=== PATIENT | male | born 1985 | race Caucasian/White ===

== ENCOUNTER 2023-02-06 10:14 | Emergency (ER) | payer OTHER, SELFPAY ==
[2023-02-06 10:15] VITALS: BP 130/102; PULSE 80; RESP 20; TEMP 36.2; O2SAT 97; BMI 32.4
--- NOTE | 2023-02-06 10:52 | RAD_ITS ---
STUDY: X-RAY - LUMBAR SPINE REASON FOR EXAM: Male, 37 years old. Back pain following injury. TECHNIQUE: 2 view(s) of the lumbar spine were obtained. COMPARISON: None FINDINGS: Normal lumbar lordosis. There is no substantial scoliosis. There is a normal alignment of the vertebrae. Disc space narrowing and spondylosis at the L5-S1 level. Well-defined bony densities overlying the lateral aspect of the right and left acetabulum. This may represent old injury. There is atherosclerotic calcification of the abdominal aorta without a demonstrated aneurysm. RAD/Lumbar Spine 2 or 3 Views IMPRESSION: Disc space narrowing and spondylosis at the L5-S1 level. Electronically Signed: Cristi Malone MD at 11:17 EST ,
[2023-02-06] MEDS: Morphine 4 MG/ML Syringe 8 MG IM (11:01)
--- NOTE | 2023-02-06 11:06 | RAD_ITS ---
STUDY: X-RAY - PELVIS AND LEFT HIP REASON FOR EXAM: Male, 37 years old. Pain TECHNIQUE: 3 views of the pelvis and hip. COMPARISON: None. FINDINGS: There is a non-specific bowel gas pattern. There are multiple calcified phleboliths. Avulsion fracture of the inferior aspect of the left iliac bone. Normal bilateral superior and inferior pubic rami. Normal pubic symphysis. Normal bilateral ischial tuberosities. Normal visualized femoral head. Normal acetabulum. Normal hip joint. RAD/HIP, UNI W/ Pelvis 2-3 Views IMPRESSION: Avulsion fracture of the left iliac bone. Electronically Signed: Cristi Malone MD at 12:26 EST ,
--- NOTE | 2023-02-06 11:19 | EDS_ITS ---
HPI History of Present Illness Chief Complaint: Back Informant: patient Narrative Narrative: Patient is a 37-year-old male with history of arthritis and degenerative joint disease as well and has remote history of what sounds like a septic joint from strep in his hips when he was 8 years old. He is presenting for about 3 months of worsening left lower back pain. He denies any radiation of the pain. Denies any associated numbness or weakness. Denies any fever, chills or unintentional weight loss. Denies any trauma. Notes that he does also get pain in his left groin, left lower abdomen and left hip. He saw his PCP at [facility] and he had a cervical x-ray as well as a CT of his abdomen pelvis. He was told that because of the CT he needs to follow-up with spine surgery and do physical therapy. He has not heard back from them. He states that he does not take NSAIDs or Tylenol because none of it helps. 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 The pain was so bad today he had a hard time getting into the truck/lifting up his left leg due to pain. This is what triggered him to come to the emergency room. He also voices frustration since he has not been able to get a hold of anyone to follow-up. [facility] Medical History (Updated 02/06/23 @ 13:[address] Eugenie Powers, ) Arthritis Degenerative disc disease Medical History no medical history Home Medications hydrocodone-acetaminophen 5-325mg 5mg-325mg 1 - 2 tab PO Q4H PRN PRN Pain ##20 09/20/16 [Rx Last Taken Unknown] naproxen 500 mg tablet 500 mg PO BID PRN #20 tabs 09/20/16 [Rx Last Taken Unknown] naproxen 500 mg tablet 500 mg PO BID #20 tabs 02/06/23 [Rx Last Taken Unknown] oxycodone-acetaminophen 5 mg-325 mg tablet (Percocet) 1 tab PO Q6H PRN pain 3 days #12 tabs 02/06/23 [Rx Last Taken Unknown] Allergy/AdvReac Type Severity Reaction Status Date / Time No Known Allergies Allergy Verified 02/06/23 10:15 Surgical History (Updated 02/06/23 @ 11:52 by Ismael Feliz) History of hip surgery Social History Smoking Status: Never smoker ROS ROS ED Constitutional Constitutional ED: Denies chills or fever(s) Respiratory/Chest Respiratory/Chest: Denies dyspnea Gastrointestinal Gastrointestinal: Reports abdominal pain; Denies nausea or vomiting Genitourinary Genitourinary ED: Denies dysuria or urinary frequency Musculoskeletal Musculoskeletal: Reports back pain and other Details: left hip pain Integumentary Denies rash Neurologic Neurologic: Denies paresthesias or weakness Psychiatric Psychiatric: Denies anxiety Hematologic/Lymphatic Hematologic/Lymphatic: Denies easy bleeding or easy bruising EXAM Physical Exam Const Vital Signs: 02/06/23 10:15 Temperature 97.2 F L Temperature Source Temporal Pulse Rate 80 Respiratory Rate 20 H Blood Pressure 130/102 H Blood Pressure Mean 111 Pulse Ox 97 Oxygen Delivery Method Room Air Positive well nourished and well developed General Appearance ED: well developed and NAD HEENT Reports moist mucous membranes Eyes PERRL Resp normal respiratory effort and clear to auscultation bilaterally Cardio regular rate and regular rhythm GI normal to inspection, nondistended, normoactive bowel sounds, soft to palpation and non-tender Back/Spine Back/Spine Narrative: Tenderness palpation of the left lower paraspinal region as well as approximately L3-L4. Patient has reproduction of pain with straight leg test on the contralateral side however does not radiate. Does not tolerate 15 degrees of straight leg test on the left side because of pain in his lower back. Again does not radiate. Thoracic Spine / Upper Back: Negative for paraspinal muscle tenderness Extremity normal to inspection Extremity Narrative: Pinpoint tenderness to palpation. Patient is have pain with range of motion of the hip. General Extremety ED: Negative for edema or tenderness General Extremity: Negative for edema Neuro oriented x3 and no sensory deficits noted Motor Exam: strength 5/5 throughout Psych mental status grossly normal Skin no rashes or lesions noted and no wounds MDM MDM MDM Narrative Medical decision making narrative: Patient is evaluated for traumatic ongoing left lower back and left hip pain. He also sometimes has some pain in his left lower quadrant. He had a recent outpatient CT. I am able to review the results on Clinisync which she will fatty liver with sparing adjacent to the gallbladder fossa no acute abnormality. There is L5-S1 disc height is mildly narrowed with mild adjacent endplate hypertrophy. He does have some midline tenderness of the lumbar spine as well as paraspinal tenderness. Is given IM morphine with some improvement of his pain. He now looks more comfortable at rest. States it still has pain when he moves. X-ray shows displaced narrowing and spondylosis at L5/1 level but no other acute process. Addition I did obtain a hip x-ray due to his complaint of hip pain. He is found to have an avulsion fracture of the left iliac bone. Discussed with radiology who feels that it is likely acute. This possibly could be exacerbating his pain however it is little atypical given how long this pain has been going on and he does not have any trauma or mechanism injury for this. Case was discussed with Dr. Meza, orthopedics, who states that this would be a nonoperative injury and can follow-up in the office. Likely need physical therapy. Recommends crutches and pain control. Patient states he does have crutches at home and does not need a prescription. There is also a walker at home if he really needed it. Will be given a work note for today and tomorrow and is given a short course of oxycodone for pain control. Is given return precautions. Will be given spine referral per his request as well. Counseled that the exact cause of his symptoms and mechanism of his pain is not entirely clear however at this time he does not require emergent admission/further work-up. He is agreeable with this. He does not have any physical exam findings that are consistent with a radiculopathy at this time. He is neurovascularly intact. Radiography Diagnostic Testing: Clinical Impression(s) from Imaging Studies Lumbar Spine X-Ray 02/06/23 10:52 IMPRESSION: Disc space narrowing and spondylosis at the L5-S1 level. Electronically Signed: Cristi Malone MD at 11:17 EST , Hip/Pelvis X-Ray 02/06/23 11:06 IMPRESSION: Avulsion fracture of the left iliac bone. Electronically Signed: Cristi Malone MD at 12:26 EST , Left hip x-ray?no acute dislocation. Avulsion fracture of the left iliac bone noted. Management Discussion w/another healthcare provider: Drywall Finisher Foreman and Radiologist Discharge Plan Triage Chief Complaint: Back ED Provider: Eugenie Powers Dx/Rx/DC Orders Clinical Impression: Closed avulsion fracture of left anterior inferior iliac spine, Chronic left-sided low back pain Instructions: Common Types of Fractures, ED Pain Management: Chronic Prescriptions: New naproxen 500 mg tablet 500 mg PO BID Qty: 20 0RF oxycodone-acetaminophen [Percocet] 5-325 mg tablet 1 tab PO Q6H PRN (Reason: pain) 3 Days Qty: 12 0RF No Action hydrocodone-acetaminophen 1 TABLET tablet 1 - 2 tab PO Q4H PRN PRN (Reason: Pain) Qty: 20 0RF naproxen 500 MG tablet 500 mg PO BID PRN Qty: 20 0RF Stand Alone Forms: ED Work / School Excuse Primary Care Provider: Care Physician,No Primary Referrals: Jonel Peña, [Med Staff - Active Staff] - As Needed (for Spine follow up ) Suhas Meza MD [Med Staff - Active Staff] - As soon as possible NOT,DEFINED [Non-Staff] - Activity Restrictions/Additional Instructions: Use crutches for comfort. Please follow-up with orthopedics and you have also been given referral for youth career specialist. (Dr. Peña). Take anti- inflammatories regularly (you been given a prescription for naproxen) and you have also been given a prescription for stronger pain medication?Percocet to take for breakthrough pain. Disposition Disposition: Home, Self Care
== END 2023-02-06 13:48 | disposition home or self-care (01) ==
PROVIDERS: Emergency Provider Emergency Medicine; Visit Provider Emergency Medicine
DX: S32.312A Displaced avulsion fracture of left ilium, initial encounter for closed fracture (principal); X58.XXXA Exposure to other specified factors, initial encounter; M47.816 Spondylosis without myelopathy or radiculopathy, lumbar region; M48.061 Spinal stenosis, lumbar region without neurogenic claudication; M25.552 Pain in left hip; R10.32 Left lower quadrant pain
CPT/HCPCS: 72100; 73502; 96372; 99282

== ENCOUNTER → 2023-02-12 | Outpatient (CLI) | payer OTHER, SELFPAY ==
[2023-02-12 15:43] LABS: Absolute Lymphocyte Count 1.02 X10^3/uL (0.83-4.51); Absolute Neutrophil Count 5.5 X10^3/uL (2.0-7.7); Basophil# 0.04 X10^3/uL; Basophil% 0.5 % (0-1); Eosinophil# 0.07 X10^3/uL; Hematocrit 46.3 % (40-54); Hemoglobin 15.3 g/dL (13.0-16.5); Lymphocyte # 1.02 X10^3/ul (0.83-4.51); Mean Corpuscular Hgb 30.1 pg (27.0-32.0); Mean Corpuscular Volume 91.1 fL (80-94); Mean Platelet Vol. 11.9 fl (6.2-12.0); Monocyte# 0.64 X10^3/uL; Monocyte% 8.8 % (0-10); NRBC Flagged by Analyzer 0 % (0-5); Neutrophil # 5.49 X10^3/uL (2.7-7.7); Neutrophil % 75.4 % (47-70); Platelet Count 235 K/mm3 (150-450); RBC Distribution Width CV 12.9 % (11.6-14.6); RBC Distribution Width SD 42.9 fl (35.1-43.9); Red Blood Count 5.08 M/mm3 (4.6-6.2); White Blood Count 7.3 K/mm3 (4.4-11.0)
[2023-02-12 15:55] LABS: Anion Gap 5 (5-15); BUN 12 mg/dL (7-18); BUN/Creat Ratio 11.9 RATIO (10-20); CRP 3.25 mg/L (0.0-3.0); Calcium,Total 8.7 mg/dL (8.5-10.1); Chloride 107 mmol/L (98-107); Creatinine, Serum 1.01 mg/dL (0.70-1.30); EST Glomerular Filtration Rate 89 mL/min (>60); Est Glom Filt Rate - Afr Amer 108 mL/min (>60); Glucose 95 mg/dL (74-106); Potassium 4.1 mmol/L (3.5-5.1); Sodium Level 140 mmol/L (136-145)
[2023-02-12 16:02] LABS: Erythrocyte Sedimentation Rate 2 mm/hr (0-20)
== END | disposition home or self-care (01) ==
LOC: LAB 14:45
PROVIDERS: PCP Family Medicine; Referring Provider Physician Assistant; Visit Provider Physician Assistant
DX: M25.552 Pain in left hip (principal)
CPT/HCPCS: 36415; 80048; 85025; 85652; 86140

== ENCOUNTER → 2023-03-22 | Outpatient (CLI) | payer OTHER, SELFPAY ==
--- NOTE | 2023-03-22 12:01 | RAD_ITS ---
STUDY: X-RAY CHEST REASON FOR EXAM: Male, 37 years old. PRE OP TECHNIQUE: PA and lateral views of the chest. COMPARISON: None. FINDINGS: The lungs are clear and expanded. There is no demonstrated pleural abnormality. Normal size heart. Normal mediastinum and renato. Normal visualized pulmonary arteries. Normal visualized aortic arch and descending thoracic aorta. Normal visualized thoracic spine. Normal visualized ribs, clavicles, and shoulders. There is no demonstrated abnormality of the visualized soft tissue structures of the upper abdomen. RAD/Chest PA and Lateral IMPRESSION: Normal x-ray examination of the chest. Electronically Signed: Cristi Malone MD at 16:10 EST ,
--- NOTE | 2023-03-22 12:03 | EKG12_ITS ---
Test Reason : PRE OP Blood Pressure : / mmHG Vent. Rate : 071 BPM Atrial Rate : 071 BPM P-R Int : 134 ms QRS Dur : 084 ms QT Int : 380 ms P-R-T Axes : 052 063 062 degrees QTc Int : 412 ms Normal sinus rhythm Normal ECG Confirmed by NATHALIA FISHER, ANGELINA ([id number]), news editor MERRICK ROMO ([id number]) on 03/22/2023 2:38:21 PM Referred By: Jonel Peña Confirmed By:ANGELINA SLOAN MD
[2023-03-22 13:33] LABS: Absolute Lymphocyte Count 1.36 X10^3/uL (0.83-4.51); Absolute Neutrophil Count 4.2 X10^3/uL (2.0-7.7); Basophil# 0.05 X10^3/uL; Basophil% 0.8 % (0-1); Eosinophil# 0.06 X10^3/uL; Eosinophils% 0.9 % (0-5); Hematocrit 49.2 % (40-54); Lymphocyte # 1.36 X10^3/ul (0.83-4.51); Lymphocyte % 21.4 % (19-41); Mean Corp Hgb Conc 32.5 g/dL (32-36); Mean Corpuscular Hgb 29.6 pg (27.0-32.0); Mean Corpuscular Volume 90.9 fL (80-94); Monocyte# 0.64 X10^3/uL; Monocyte% 10.1 % (0-10); NRBC Flagged by Analyzer 0 % (0-5); Neutrophil # 4.22 X10^3/uL (2.7-7.7); Neutrophil % 66.3 % (47-70); Platelet Count 230 K/mm3 (150-450); RBC Distribution Width CV 13.1 % (11.6-14.6); RBC Distribution Width SD 43.4 fl (35.1-43.9); Red Blood Count 5.41 M/mm3 (4.6-6.2); White Blood Count 6.4 K/mm3 (4.4-11.0)
[2023-03-22 13:41] LABS: Partial Thromboplast Time 28.3 Seconds (24.1-36.2)
[2023-03-22 13:45] LABS: International Normalized Ratio 1.2; Prothrombin Time (Protime)PT. 14.7 SECONDS (11.7-14.9)
[2023-03-22 13:47] LABS: Anion Gap 3 (5-15); BUN 10 mg/dL (7-18); BUN/Creat Ratio 10.4 RATIO (10-20); Calcium,Total 9.3 mg/dL (8.5-10.1); Chloride 106 mmol/L (98-107); Creatinine, Serum 0.97 mg/dL (0.70-1.30); EST Glomerular Filtration Rate 94 mL/min (>60); Est Glom Filt Rate - Afr Amer 114 mL/min (>60); Glucose 89 mg/dL (74-106); Potassium 4.4 mmol/L (3.5-5.1); Sodium Level 140 mmol/L (136-145)
== END | disposition home or self-care (01) ==
LOC: PSN 12:01
PROVIDERS: PCP Family Medicine; Referring Provider Orthopaedic Surgery; Visit Provider Orthopaedic Surgery
DX: Z01.818 Encounter for other preprocedural examination (principal); Z01.812 Encounter for preprocedural laboratory examination
CPT/HCPCS: 36415; 71046; 80048; 85025; 85610; 85730; 93005

== ENCOUNTER 2024-07-17 10:51 | Emergency (ER) | payer OTHER, SELFPAY ==
[2024-07-17 10:53] VITALS: BP 142/94; PULSE 70; RESP 15; TEMP 35.8; O2SAT 98; BMI 32.5
--- NOTE | 2024-07-17 11:25 | EX.ED.UPPERE ---
HPI History of Present Illness HPI Narrative: 38-year-old male past medical history of lumbar disc surgery. Prior history of cervical spinal stenosis diagnosed with MRI. 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 States has had left shoulder pain for about the last 4 weeks. Denies any fall injury or trauma. He does carry mail bag. He is right-hand dominant. At times he feels some tingling in his left hand he just feels like is not as strong as it was before. Denies any fever or redness. Pain is worse with movement of the shoulder. He has never had any surgery or injection of his left shoulder. Chief Complaint: Upper Extremity Injury Occured/Mechanism Mechanism/Context: No injury and No blunt trauma Onset/Context/Timing Onset: Weeks Context: Gradual Onset Timing: Continuous Quality of Pain: Sharp Current Severity: Mild Maximum Severity: Mild Narrative Narrative: 38-year-old male [id number]. Prior history of lumbar disc disease with surgery and cervical spinal stenosis on MRI. Complaint of atraumatic left shoulder pain, tingling in his left hand and decreased strength. Denies any fall injury or trauma. No fever or redness. No prior shoulder surgery. Prior similar symptoms: Yes Recent Illness/Hospitalization: No PFSH PFS Medical History Arthritis Degenerative disc disease Home Medications ?Medication ?Instructions ?Recorded ?Last Taken ?Type NK 07/17/24 Unknown History Allergy/AdvReac Type Severity Reaction Status Date / Time No Known Allergies Allergy Verified 07/17/24 10:53 Family History no significant family his Surgical History History of hip surgery Social History Smoking Status: Never smoker ROS ROS ED ROS Narrative Denies recent illness. Constitutional Constitutional ED: Denies chills or fever(s) Eyes Eyes: Denies blurry vision ENT ENT ED: Denies ear pain Cardiovascular Cardiovascular: Denies chest pain Respiratory/Chest Respiratory/Chest: Denies cough Gastrointestinal Gastrointestinal: Denies abdominal pain Genitourinary Genitourinary ED: Denies dysuria Musculoskeletal Musculoskeletal: Denies back pain, myalgias or neck pain Integumentary Denies abscess Neurologic Neurologic: Denies headache(s) Psychiatric Psychiatric: Denies anxiety Endocrine Endocrinology: Denies cold intolerance Hematologic/Lymphatic Hematologic/Lymphatic: Denies easy bleeding, easy bruising or lymphadenopathy Allergic/Immunologic Allergic/Immunologic ED: Denies mouth swelling, tongue swelling or urticaria EXAM Physical Exam Narrative Exam Narrative: 38-year-old male sitting upright in bed. Vital signs are stable afebrile. He is in no distress. H EENT exam pupils round reactive light. Moist extremities. No trauma. Neck nontender. No lymphadenopathy. No muscular tenderness or spasm. Full range of motion. Back and spine nontender. No bruising. No tenderness. Lungs clear to auscultation bilaterally. Heart regular rhythm no murmur. Chest wall and ribs nontender. Abdomen soft nontender. Patient is able to move all 4 extremities. Normal range of motion. He has mild tenderness to his left shoulder. There is no redness or warmth. No discoloration. No bruising or swelling. He is able to do flexion extension of the shoulder and internal/external rotation. He does have some discomfort with it. He is able to lift his left arm over his head. His rotator cuff appears to be intact. Biceps and triceps are nontender as is the elbow. Forearm is nontender. Wrist and hand are nontender. He has 4 out of 5 filing writer strength in the left hand 5 out of 5 on the right. He has equal symmetrical radial pulses. He does have normal touch sensation. He can open and close his hand. Neurologically he is awake and alert. Answering questions following commands. No sensory loss. Possible mild decrease strength in left hand. But he is right-hand dominant. Const Vital Signs: 07/17/24 10:53 Temperature 96.5 F L Temperature Source Temporal Pulse Rate 70 Respiratory Rate 15 Blood Pressure 142/94 H Blood Pressure Mean 110 Pulse Ox 98 Oxygen Delivery Method Room Air Positive well nourished and well developed; Negative for obese, cachectic, contractures or unkempt General Appearance ED: well developed and NAD; Negative for unkempt, cachectic, contractures, cyanotic or diaphoretic Nutritional Appearance: Negative for cachectic or obese HEENT Reports moist mucous membranes normocephalic and atraumatic Eyes PERRL and EOMs intact bilaterally Neck full ROM and supple Neck Narrative: Nontender. No muscle spasm. No spine tenderness. Normal range of motion. General: Negative for tenderness Chest Wall inspection of chest normal and palpation of chest normal Resp normal respiratory effort and clear to auscultation bilaterally Cardio regular rate, regular rhythm, S1 normal heart sound, S2 normal heart sound and no murmurs GI non-tender, non-distended and no masses Inspection: Negative for abdominal distention Palpation: soft; Negative for tender or guarding Back/Spine no CVA tenderness Cervical Spine: Negative for cervical spine tenderness Thoracic Spine / Upper Back: Negative for thoracic spinal tenderness Lumbar Spine / Lower Back: Negative for lumbar spinal tenderness Extremity normal to inspection and full ROM Extremity Narrative: Mild tenderness left shoulder. No swelling. No bruising. No signs of trauma. No redness or warmth. No signs of septic joint. He can do range of motion with mild discomfort. He can lift his arm over his head. Distal upper arm, elbow, forearm wrist and hand are nontender. Normal radial pulse. 4-5 strength. Normal sensation. No swelling. No discoloration. General Extremety ED: Negative for edema General Extremity: Negative for edema Neuro oriented x3, CN's II-XII intact bilaterally, moves all extremities, no focal motor deficits and no sensory deficits noted Neuro Narrative: Possibly mild decree strength left hand compared to right but he is right-hand dominant. I did stage IV-V on the left. Normal sensation. Normal range of motion. Sensorium / Orientation: alert, oriented to person, oriented to place and oriented to time; Negative for orientation impaired or lethargic Motor Exam: strength abnormal Psych mental status grossly normal Appearance: Negative for unkempt Attitude: No agitated Mood & Affect: Negative for depressed, anxious or tearful Skin General Skin Exam: Negative for petechiae Lesions: no lesions Rashes: no rashes Trauma: no lacerations or abrasions; Negative for abrasion, laceration, puncture or other MDM MDM MDM Narrative Medical decision making narrative: 38-year-old male with left shoulder pain for 4 weeks. No fall injury or trauma. History of cervical spinal stenosis. He has normal range of motion. This is not a septic joint. Clinically he has got no trauma. And no signs of fracture or dislocation. X-ray being obtained. There is very mild may be coming from radiating pain from his neck. Currently he is having no neck pain specifically. History & Record Review Discussion w/independent historian: Patient Additional record(s) reviewed:: Prior inpatient record, Prior outpatient record, Prior ED visit and Prior labs Radiography Diagnostic Testing: Left shoulder x-ray, 3 views, interpreted by myself shows Discharge Plan Triage Chief Complaint: Upper Extremity Injury ED Provider: Tony Reyna Dx/Rx/DC Orders Prescriptions: No Action NK Primary Care Provider: Henrry Alanis Referrals: Henrry Alanis MD [Primary Care Provider] - Print Language: Indonesian
--- NOTE | 2024-07-17 11:30 | RAD_ITS ---
PROCEDURE: SHOULDER MIN 2 VIEWS 07/17/2024 REASON FOR EXAM: ATRAUMATIC LEFT SHOULDER PAIN TECHNIQUE: 4 views of the left shoulder COMPARISON: None FINDINGS: Bones: Unremarkable Joints: Normal alignment of the acromioclavicular and glenohumeral joints. Soft tissues: Soft tissues are unremarkable. Other: RAD/Shoulder min 2 Views IMPRESSION: NO ACUTE FRACTURE OR DISLOCATION. Reading Location: [id number]
[2024-07-17 11:58] VITALS: BP 142/94; PULSE 70; RESP 16; TEMP 35.8; O2SAT 98
== END 2024-07-17 12:27 | disposition home or self-care (01) ==
PROVIDERS: Emergency Provider Emergency Medicine; PCP Family Medicine; Visit Provider Emergency Medicine
DX: M25.512 Pain in left shoulder (principal)
CPT/HCPCS: 73030; 99282